=== PATIENT | male | born 1990 | race Caucasian/White ===

== ENCOUNTER 2022-01-15 18:22 | Emergency (ER) | payer SELFPAY ==
[~2022-01-15] VITALS: Ht 170.2 cm; Wt 65.9 kg
[2022-01-15] MEDS ORDERED: IV NORMAL SALINE 1000ML BAG 1,000 ML IV ONE ×2 (18:30→19:00)
--- NOTE | 2022-01-15 18:45 | PHYS DOC ---
Adult General HPI HPI The patient is a 31-year-old male who is otherwise healthy. He presents for evaluation of a self-harm ingestion of Benadryl and methamphetamines occurring 2.5 hours prior to arrival. Patient reports he took 1500 mg (50mg gelcaps x30) of Benadryl at 4 PM intending to kill himself. He also insufflated methamphetamines at the same time. Denies other suicidal ingestions or actions and denies other substance use; did drink alcohol last night but none since then. Reports life stress primarily relating to the end of his marriage at the end of last year. Denies physical complaints. Vital signs and blood glucose are appropriate here and patient is in no acute distress, ambulatory with a narrow, steady gait to ED bed 22. Patient's roommate evidently found him ingesting medication and took him to [facility] for care. He was sent here in an ambulance for medical clearance. (MAXWELL MORGAN MD) Review of Systems Review of Systems A 12 point review of systems was completed and was negative except where noted in HPI above. (MAXWELL MORGAN MD) Current Medications Current Medications Current Medications Medications (Trade) Dose Ordered Sig/Davidson Start Time Stop Time Status Last Admin Dose Admin Sodium Chloride 1,000 ml @ 1,000 mls/hr 1X ONCE 01/15/22 19:00 01/15/22 19:59 DC 01/15/22 18:50 1,000 MLS/HR (MORE ESTRELLA MD) Allergies Allergies Allergies Coded Allergies Type Severity Reaction Last Updated Verified No Known Drug Allergies 01/15/22 No (MORE ESTRELLA MD) Physical Exam Physical Exam 31-year-old male appearing nontoxic and in no acute distress. Head is normocephalic and atraumatic. Neck is supple and nontender. Oropharynx is moist. Lungs are clear to auscultation at all stations. There is a normal S1 and S2 without rubs or gallops and capillary refill is appropriate, less than 2 seconds globally. Abdomen is soft, nontender nondistended. Skin is warm and dry without cyanosis, clubbing or edema. Psychiatrically, the patient demonstrates appropriate mood and affect and is alert. (MAXWELL MORGAN MD) Current Patient Data Vital Signs Vital Signs Date Time Temp Pulse Resp B/P (MAP) Pulse Ox O2 Delivery O2 Flow Rate FiO2 01/17/22 02:30 64 14 121/58 (79) 99 Room Air 01/16/22 14:35 98.2 98.2 (MORE ESTRELLA MD) Lab Values Laboratory Tests Test 01/15/22 18:39 01/15/22 19:50 01/15/22 22:05 01/16/22 05:12 White Blood Count 10.5 x10^3/uL (4.0-11.0) Red Blood Count 5.13 x10^6/uL (4.30-5.70) Hemoglobin 15.4 g/dL (13.0-17.5) Hematocrit 43.7 % (39.0-53.0) Mean Corpuscular Volume 85 fL (79-100) Mean Corpuscular Hemoglobin 30 pg (25-35) Mean Corpuscular Hemoglobin Concent 35 g/dL (31-37) Red Cell Distribution Width 13.6 % (11.5-14.5) Platelet Count 363 x10^3/uL (140-400) Sodium Level 142 mmol/L (136-145) Potassium Level 3.4 mmol/L (3.5-5.1) L Chloride Level 103 mmol/L (98-107) Carbon Dioxide Level 28 mmol/L (21-32) Anion Gap 11 (6-14) Blood Urea Nitrogen 9 mg/dL (8-26) Creatinine 0.9 mg/dL (0.7-1.3) Estimated GFR (Cockcroft-Gault) 98.4 BUN/Creatinine Ratio 10 (6-20) Glucose Level 101 mg/dL (70-99) H Calcium Level 8.9 mg/dL (8.5-10.1) Magnesium Level 2.1 mg/dL (1.8-2.4) Total Bilirubin 0.6 mg/dL (0.2-1.0) Aspartate Amino Transferase (AST) 22 U/L (15-37) Alanine Aminotransferase (ALT) 30 U/L (16-63) Alkaline Phosphatase 58 U/L (46-116) Creatine Kinase 205 U/L (39-308) Total Protein 7.8 g/dL (6.4-8.2) Albumin 3.6 g/dL (3.4-5.0) Albumin/Globulin Ratio 0.9 (1.0-1.7) L Salicylates Level 3.6 mg/dL (2.8-20.0) Salicylate Last Dose Date Salicylate Last Dose Time Acetaminophen Level < 2 mcg/ml (10-30) L Acetaminophen Last Dose Date Acetaminophen Last Dose Time Ethyl Alcohol Level < 10 mg/dL (0-10) SARS-CoV-2 Antigen (Rapid) Negative (NEGATIVE) Urine Opiates Screen Neg (NEG) Urine Methadone Screen Neg (NEG) Urine Barbiturates Neg (NEG) Urine Phencyclidine Screen Neg (NEG) Urine Amphetamine/Methamphetamine Pos (NEG) Urine Benzodiazepines Screen Neg (NEG) Urine Cocaine Screen Neg (NEG) Urine Cannabinoids Screen Pos (NEG) Urine Ethyl Alcohol Neg (NEG) SARS-CoV-2 (PCR) Not detected (NOT DETECTD) Laboratory Tests 01/15/22 18:39 Laboratory Tests 01/15/22 18:39 (MORE ESTRELLA MD) Lab Values Laboratory Tests Test 01/15/22 18:39 01/15/22 19:50 01/15/22 22:05 White Blood Count 10.5 x10^3/uL (4.0-11.0) Red Blood Count 5.13 x10^6/uL (4.30-5.70) Hemoglobin 15.4 g/dL (13.0-17.5) Hematocrit 43.7 % (39.0-53.0) Mean Corpuscular Volume 85 fL (79-100) Mean Corpuscular Hemoglobin 30 pg (25-35) Mean Corpuscular Hemoglobin Concent 35 g/dL (31-37) Red Cell Distribution Width 13.6 % (11.5-14.5) Platelet Count 363 x10^3/uL (140-400) Sodium Level 142 mmol/L (136-145) Potassium Level 3.4 mmol/L (3.5-5.1) L Chloride Level 103 mmol/L (98-107) Carbon Dioxide Level 28 mmol/L (21-32) Anion Gap 11 (6-14) Blood Urea Nitrogen 9 mg/dL (8-26) Creatinine 0.9 mg/dL (0.7-1.3) Estimated GFR (Cockcroft-Gault) 98.4 BUN/Creatinine Ratio 10 (6-20) Glucose Level 101 mg/dL (70-99) H Calcium Level 8.9 mg/dL (8.5-10.1) Magnesium Level 2.1 mg/dL (1.8-2.4) Total Bilirubin 0.6 mg/dL (0.2-1.0) Aspartate Amino Transferase (AST) 22 U/L (15-37) Alanine Aminotransferase (ALT) 30 U/L (16-63) Alkaline Phosphatase 58 U/L (46-116) Creatine Kinase 205 U/L (39-308) Total Protein 7.8 g/dL (6.4-8.2) Albumin 3.6 g/dL (3.4-5.0) Albumin/Globulin Ratio 0.9 (1.0-1.7) L Salicylates Level 3.6 mg/dL (2.8-20.0) Salicylate Last Dose Date Salicylate Last Dose Time Acetaminophen Level < 2 mcg/ml (10-30) L Acetaminophen Last Dose Date Acetaminophen Last Dose Time Ethyl Alcohol Level < 10 mg/dL (0-10) SARS-CoV-2 Antigen (Rapid) Negative (NEGATIVE) Urine Opiates Screen Neg (NEG) Urine Methadone Screen Neg (NEG) Urine Barbiturates Neg (NEG) Urine Phencyclidine Screen Neg (NEG) Urine Amphetamine/Methamphetamine Pos (NEG) Urine Benzodiazepines Screen Neg (NEG) Urine Cocaine Screen Neg (NEG) Urine Cannabinoids Screen Pos (NEG) Urine Ethyl Alcohol Neg (NEG) Laboratory Tests 01/15/22 18:39 Laboratory Tests 01/15/22 18:39 (MAXWELL MORGAN MD) EKG EKG Sinus rhythm, rate 109, no acute ST elevation or depression, MA 120, QRS 96, QTc 484, EP interpretation. Nonischemic tracing, intervals appropriate. (MAXWELL MORGAN MD) Radiology/Procedures Radiology/Procedures [] (MAXWELL MORGAN MD) Course & Med Decision Making Course & Med Decision Making 31-year-old male with polysubstance ingestion about 2-1/2 hours ago, self-harm. Anxious and a little shaky and appears to be under the dual influence of methamphetamines and some degree of mild anticholinergic toxidrome. EKG with appropriate intervals, no QRS widening. Will monitor closely on telemetry, give IV fluids, check labs as noted and will then reevaluate. Plan to clear for psych after about 6 hours if no significant issues arise. This is discussed in detail with the [place] [facility] who are in agreement. 0600: Patient observed uneventfully here in the emergency department for more than 6 hours. No longer tachycardic. Resting comfortably but easily arousable. Labs unremarkable aside from amphetamine positivity on UDS. Repeat EKG with normal QT and QRS. 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 Transition of care at this time to Dr. Barahona. Critical care time was 42 minutes for severe polysubstance overdose requiring one-to-one observation and close monitoring here in the emergency department. (MAXWELL MORGAN MD) Course & Med Decision Making Accepted patient care at shift change. Patient is currently medically cleared with a negative COVID PCR. Patient is pending PAT evaluation for disposition. Patient accepted at [facility], accepting physician Dr. Altamirano Patient transported out of the emergency department in stable condition by EMS (MORE ESTRELLA MD) Dragon Disclaimer Dragon Disclaimer This electronic medical record was generated, in whole or in part, using a voice recognition dictation system. (MAXWELL MORGAN MD) Departure Departure Impression: Primary Impression: Methamphetamine abuse Additional Impressions: Intentional diphenhydramine poisoning Suicide attempt by drug overdose [facility] Condition: STABLE Problem Qualifiers Additional Impressions: Intentional diphenhydramine poisoning Encounter type: initial encounter Qualified Codes: T45.0X2A - Poisoning by antiallergic and antiemetic drugs, intentional self-harm, initial encounter MAXWELL MORGAN MD Jan 15, 2022 18:45 MORE ESTRELLA MD Jan 16, 2022 18:25
[2022-01-15 18:48] LABS: HEMATOCRIT 43.7 % (39.0-53.0); HEMOGLOBIN 15.4 g/dL (13.0-17.5); RED BLOOD COUNT 5.13 x10^6/uL (4.30-5.70); RED CELL DISTRIBUTION WIDTH 13.6 % (11.5-14.5); WHITE BLOOD COUNT 10.5 x10^3/uL (4.0-11.0)
[2022-01-15 18:56] LABS: CALCIUM 8.9 mg/dL (8.5-10.1); CREATININE 0.9 mg/dL (0.7-1.3); GFR 98.4; POTASSIUM 3.4 mmol/L (3.5-5.1)
[2022-01-15 19:01] LABS: MAGNESIUM 2.1 mg/dL (1.8-2.4)
[2022-01-15 19:02] LABS: ACETAMIN < 2 mcg/ml (10-30); ALBUMIN 3.6 g/dL (3.4-5.0); ALBUMIN/GLOBULIN RATIO 0.9 (1.0-1.7); SALIC 3.6 mg/dL (2.8-20.0); TOTAL BILIRUBIN 0.6 mg/dL (0.2-1.0); TOTAL PROTEIN 7.8 g/dL (6.4-8.2)
[2022-01-15 19:03] LABS: ETHANOL < 10 mg/dL (0-10)
[2022-01-15 22:24] LABS: BARBITURATES NEG (NEG); BENZODIAZEPINES NEG (NEG); CANNABINOIDS POS (NEG); COCAINE NEG (NEG); METHADONE NEG (NEG); OPIATES NEG (NEG); PHENCYCLIDINE NEG (NEG)
[2022-01-15 22:26] LABS: AMPHETAMINE/METHAMPHETAMINE POS (NEG)
[2022-01-17 02:30] VITALS: BP 121/58
--- NOTE | 2022-01-17 10:27 | EKG ---
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
--- NOTE | 2022-01-17 12:06 | EKG ---
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
== END 2022-01-17 03:13 ==
LOC: ER 18:22
DX: T45.0X2A Poisoning by antiallergic and antiemetic drugs, intentional self-harm, initial encounter (principal); T43.622A Poisoning by amphetamines, intentional self-harm, initial encounter; F15.10 Other stimulant abuse, uncomplicated; Z20.822 Contact with and (suspected) exposure to COVID-19; Y92.89 Other specified places as the place of occurrence of the external cause
CPT/HCPCS: 36415; 80053; 80307; 80329; 82550; 83735; 85027; 87426; 87491; 87591; 93005; 96360; 99291; G0480; J7030; U0003